=== PATIENT | male | born 1975 | race Caucasian/White ===

== ENCOUNTER 2020-10-21 11:20 | Emergency (ER) | payer SELFPAY ==
[~2020-10-21] VITALS: Ht 177.8 cm; Wt 87.0 kg
[2020-10-21 11:25] VITALS: BP 138/86
[2020-10-21] MEDS ORDERED: OXYcodone/APAP 5/325MG TABLET PO ONE (12:00)
[2020-10-21] MEDS ORDERED: OXYcodone/APAP 5/325MG TABLET ONE (12:10)
--- NOTE | 2020-10-21 12:15 | NUR ---
PT MEDICATED PER EMAR. RESTING ON GURNEY W/ CALL LIGHT IN REACH AND FAMILY AT BEDSIDE. AWAITING SPLINT.
--- NOTE | 2020-10-21 12:46 | NUR ---
Patient given discharge instructions and they have confirmed that they understand the instructions. Patient ambulatory with steady gait.
== END 2020-10-21 12:47 | disposition home or self-care (01) ==
LOC: ED 12:45
DX: S52.572A Other intraarticular fracture of lower end of left radius, initial encounter for closed fracture (principal); X58.XXXA Exposure to other specified factors, initial encounter; Y93.89 Activity, other specified; Y92.009 Unspecified place in unspecified non-institutional (private) residence as the place of occurrence of the external cause; Y99.8 Other external cause status
CPT/HCPCS: 29125; 99283